=== PATIENT | female | born 1975 | race African-American/Black ===

== ENCOUNTER 2017-01-18 10:58 | Emergency (ER) | payer OTHER ==
[2017-01-18 13:10] LABS: BASOPHIL% 0.6 % (0-2.5); EOSINOPHIL# 0.1 X10e3 (0-0.7); EOSINOPHIL% 2.1 % (0.0-7.0); HEMATOCRIT 25.7 % (35.0-45.0); HEMOGLOBIN 7.8 gm/dL (12.0-16.0); LYMPHOCYTE# 2.1 X10e3 (1.0-3.5); LYMPHOCYTE% 40.9 % (17.0-45.0); MEAN CELL VOLUME 69.4 FL (83-96); MEAN CORPUSCULAR HGB CONC 30.3 g/dL (30-36); MONOCYTE# 0.6 X10e3 (0-1.0); MONOCYTE% 11.4 % (3.0-12.0); NEUTROPHIL# 2.3 X10e3 (1.5-7.1); PLATELET COUNT 415 X10e3 (140-420); RED CELL DISTRIBUTION WIDTH 19.5 % (11.0-15.5); WHITE BLOOD COUNT 5.1 X10e3 (4.0-10.5)
[2017-01-18 13:20] LABS: DIFF IND NO
[2017-01-18 13:33] LABS: ALBUMIN SERUM 4.4 g/dL (3.5-5.0); BILIRUBIN,TOTAL 0.3 mg/dL (0.2-2.0); CALCIUM SERUM 9.2 mg/dL (8.4-10.2); CREATININE SERUM 0.5 mg/dL (0.6-1.4); GLOM FILT RATE Estimated 139.3 mL/min (>60); POTASSIUM 3.6 mmol/L (3.5-5.1); PROTEIN TOTAL SERUM 7.9 g/dL (6.0-8.3)
== END 2017-01-18 14:02 | disposition home or self-care (01) ==
LOC: SED 10:58
PROVIDERS: Emergency Medicine
DX: R51 Headache (principal); D64.9 Anemia, unspecified; Z88.5 Allergy status to narcotic agent
CPT/HCPCS: 36415; 80053; 85025; 96360; 96372; 99284; J0780